=== PATIENT | female | born 1995 | race African-American/Black ===

== ENCOUNTER 2018-01-23 21:35 | Emergency (ER) | payer OTHER ==
[~2018-01-23] VITALS: Ht 149.9 cm; Wt 59.1 kg
[2018-01-23 21:38] VITALS: BP 137/98; TEMP 99.1
[2018-01-23 22:13] VITALS: PULSE 90
== END 2018-01-23 22:19 | disposition home or self-care (01) ==
LOC: COL.ER 21:35
DX: S61.012A Laceration without foreign body of left thumb without damage to nail, initial encounter (principal); W26.0XXA Contact with knife, initial encounter